=== PATIENT | female | born 1980 | race Caucasian/White ===

== ENCOUNTER 2017-09-28 11:32 | Emergency (ER) | payer OTHER ==
[2017-09-28 11:37] VITALS: RESP 18
--- NOTE | 2017-09-28 11:48 | CPEKG ---
Heart Rate: 59 RR Interval: 1017 P-R Interval: 132 QRSD Interval: 78 QT Interval: 408 QTC Interval: 405 P [place]: 0 QRS [place]: 70 T Wave [place]: 70 EKG Severity - NORMAL ECG - EKG Impression: SINUS RHYTHM Electronically Signed By: Mariam Sneed 28-Sep-2017 15:05:04
--- NOTE | 2017-09-28 12:16 | EDPHY ---
H & P Time Seen by Provider: 09/28/17 12:02 HPI/ROS: CHIEF COMPLAINT: Chest pain, left leg pain HISTORY OF PRESENT ILLNESS: 37-year-old female presents with chest pain and left leg pain. 2 days ago, she was driving and had sudden onset of left-sided chest pain, described as a pressure sensation. Associated with shortness of breath, rapid heart rate and tingling in her fingers. When she arrived at work , all the symptoms except for the chest pain resolved. Since then she has had persistent left-sided chest pressure. The chest pain increases with deep inspiration. This morning she awoke with pain behind her left knee. The pain is constant behind her left knee, without swelling. 1 week ago, she drove to [place] and back. No prior history of pulmonary embolism. REVIEW OF SYSTEMS: Constitutional: No fever, no chills Eyes: No visual changes ENT: No sore throat Respiratory: No cough Gastrointestinal: no vomiting, no abdominal pain Genitourinary: no dysuria Skin: No rash Neurological: No headache, no weakness Psychiatric: No depression Past Medical/Surgical History: Denies Social History: Smoking Status: Never smoked Physical Exam: General Appearance: Alert, pleasant Eyes: Pupils equal and round, no conjunctival pallor ENT, Mouth: Mucous membranes moist Neck: Normal inspection Respiratory: no chest wall tenderness, lungs are clear to auscultation Cardiovascular: Regular rate and rhythm Gastrointestinal: Abdomen is soft and nontender Neurological: A&O, nonfocal, normal gait Skin: Warm and dry, no rash Extremities: tender behind the left knee, no calf swelling or tenderness Psychiatric: Mood and affect normal Constitutional: Initial Vital Signs Temperature (C) 36.7 C 09/28/17 11:33 Heart Rate 84 09/28/17 11:33 Respiratory Rate 18 09/28/17 11:33 Blood Pressure 164/83 H 09/28/17 11:33 O2 Sat (%) 100 09/28/17 11:33 O2 Delivery Mode Room Air Allergies/Adverse Reactions: sulfamethoxazole [From Sulfamethoprim] Allergy (Intermediate, Verified 09/28/17 11:38) Hives trimethoprim [From Sulfamethoprim] Allergy (Intermediate, Verified 09/28/17 11: 38) Hives Home Medications: Medication Instructions Recorded Levothyroxine [Synthroid 100 mcg 100 mcg PO DAILY06 09/28/17 (*)] Medical Decision Making - Diagnostics EKG Interpretation: EKG interpreted by me reveals sinus rhythm, rate 59, no ST or T segment changes. Impression: normal EKG Imaging Results: Chest x-ray independently reviewed by me reveals no acute disease. Left lower extremity ultrasound read by Dr. Mich Oliveros is normal. ED Course/Re-evaluation: This patient presents with left-sided chest pain and left calf pain after recent prolonged travel, concerning for venous thromboembolism. However, she has no risk factors for DVT. Low risk for PE per Wells criteria. D-dimer and left lower extremity ultrasound ordered. If these tests are normal, I feel that I can safely exclude DVT/PE. D-dimer and left lower extremity ultrasound are normal. I feel that I can safely exclude venous thromboembolism as etiology for the chest pain. In addition, she has no risk factors for acute coronary syndrome and I do not suspect this etiology, especially in light of prolonged and atypical symptoms. I feel that she can safely be discharged home. She will follow up with her primary care physician. Differential Diagnosis: Differential diagnosis includes though it is not limited to pneumonia, pneumothorax, pulmonary embolism, aortic dissection, pericarditis, acute coronary syndrome. - Data Points Laboratory Results: Laboratory Results 09/28/17 11:45 09/28/17 11:45 Medications Given: Discontinued Medications Ketorolac Tromethamine (Toradol) 15 mg IVP EDNOW ONE Stop: 09/28/17 14:33 Last Admin: 09/28/17 14:44 Dose: Not Given Departure - Departure Disposition: Home, Routine, Self-Care Clinical Impression: Chest pain Qualifiers: Chest pain type: chest pain on breathing Qualified Code(s): R07.1 - Chest pain on breathing Condition: Good Instructions: Chest Pain (ED) Additional Instructions: Ibuprofen 600 mg 3 times daily while the pain persists. You have no evidence of a blood clot. Referrals: SARAH CASANOVA [Other] - 2-3 days, if not improved
[2017-09-28 12:20] LABS: % IMMATURE GRANULYOCYTES 0.3 % (0.0-1.1); ABSOLUTE IMMATURE GRANULOCYTES 0.02 10^3/uL (0.00-0.10); ADD DIFF? NO; ADD MORPH? NO; ADD SCAN? NO; ATYPICAL LYMPHOCYTE FLAG 0 (0-99); FRAGMENT RBC FLAG 0 (0-99); HEMATOCRIT 44.8 % (38.0-47.0); HEMOGLOBIN 15.1 g/dL (12.6-16.3); LEFT SHIFT FLG 0 (0-99); LIPEMIA HEMOLYSIS FLAG 80 (0-99); MEAN CELL HEMOGLOBIN 31.9 pg (27.9-34.1); MEAN CELL HEMOGLOBIN CONCENTR. 33.7 g/dL (32.4-36.7); MEAN CELL VOLUME 94.5 fL (81.5-99.8); MEAN PLATELET VOLUME 9.4 fL (8.7-11.7); PLATELET CLUMPS FLAG 0 (0-99); PLATELET COUNT 269 10^3/uL (150-400); RED BLOOD CELL COUNT 4.74 10^6/uL (4.18-5.33); RED CELL DISTRIBUTION WIDTH 11.8 % (11.5-15.2)
[2017-09-28 12:30] LABS: ANION GAP 14 mEq/L (8-16); CARBON DIOXIDE 27 mEq/l (22-31); CHLORIDE 102 mEq/L (97-110); CREATININE 0.7 mg/dL (0.6-1.0); GLOMERULAR FILTRATION RATE > 60; GLUCOSE 88 mg/dL (70-100); POTASSIUM 3.9 mEq/L (3.5-5.2); SODIUM 143 mEq/L (134-144)
[2017-09-28] MEDS ORDERED: KETOROLAC 15 MG/1 ML SDV IVP ONE (14:32)
[2017-09-28 14:49] VITALS: BP 113/80; PULSE 57; TEMP 99.1; O2SAT 99
== END 2017-09-28 14:49 | disposition home or self-care (01) ==
DX: R07.1 Chest pain on breathing (principal)